=== PATIENT | female | born 1960 | race Caucasian/White ===

== ENCOUNTER 2018-07-02 16:49 | Emergency (ER) | payer OTHER ==
--- OUTSIDE RECORDS SUMMARY | 2018-07-02 16:51 | XMS REPORT ---
:1960 [facility] Address [address] [place] [address] [address] Care Team Providers Name Role Phone DR DEANNA CARLSON Unavailable Unavailable Problems This patient has no known problems. Allergies, Adverse Reactions, Alerts This patient has no known allergies or adverse reactions. Medications This patient has no known medications. Encounters Start End Encounter Admission Attending Care Care Encounter Date/Time Date/Time Type Type Clinicians Facility Department ID 2017-09-20 [id number] 16:15:00
[2018-07-02 17:58] LABS: Urine Blood NEGATIVE (NEG); Urine Glucose NEGATIVE (NEG); Urine Protein NEGATIVE (NEG); Urine Specific Gravity 1.025 (1.005-1.030)
[2018-07-02 18:18] LABS: Absolute Lymphocytes (CBC) 2.2 K/uL (0.7-4.9); Absolute Monocytes 0.9 K/uL (0.1-1.3); Absolute Neutrophil 4.2 K/uL (1.8-8.0); Basophils % 1.4 % (0-1.3); Hematocrit 40.9 % (36.0-45.0); Lymphocytes % 27.9 % (15.3-44.8); MPV 8.8 fL (7.6-11.3); Monocytes % 10.9 % (3.3-12.3); RBC Red Blood Cell Count 4.78 M/uL (3.86-4.86)
[2018-07-02 18:31] LABS: Urine Bacteria <20 /HPF (<20); Urine Culture Reflex Order NOT NEEDED; Urine RBC NONE SEEN /HPF (NONE SEEN)
[2018-07-02 18:36] LABS: Protime INR 0.97
[2018-07-02 18:43] LABS: ALT/SGPT 25 U/L (12-78); AST/SGOT 17 U/L (15-37); Albumin 3.4 g/dL (3.4-5.0); Alkaline Phosphatase 120 U/L (45-117); BUN Blood Urea Nitrogen 22 mg/dL (7-18); Bicarbonate 32 mmol/L (21-32); Bilirubin Direct 0.1 mg/dL (0-0.2); Bilirubin Total 0.4 mg/dL (0.2-1.0); Glucose Level 102 mg/dL (74-106); Potassium 4.2 mmol/L (3.5-5.1); Protein, Total 7.3 g/dL (6.4-8.2); Sodium Level 142 mmol/L (136-145); Troponin (Emerg Dept Use Only) < 0.02 ng/mL (0.0-0.045)
--- NOTE | 2018-07-02 19:05 | RAD REPORT ---
EXAM DESCRIPTION: RAD - Chest Pa And Lat (2 Views) - 07/02/2018 6:14 pm CLINICAL HISTORY: Shortness of breath, hypertension, diaphoresis COMPARISON: None. TECHNIQUE: PA and lateral views of the chest were obtained. FINDINGS: The lungs are clear. No mediastinal or hilar mass or lymphadenopathy suspected. Heart siz e is normal and central vasculature is within normal limits. No pleural effusion or pneumothorax see n. No acute bony finding noted. No aortic abnormality. IMPRESSION: No acute cardiopulmonary process.
[2018-07-02] MEDS ORDERED: NA CHLORIDE 0.9% 1,000 ML ONE (19:37)
--- NOTE | 2018-07-02 19:54 | RAD REPORT ---
EXAM DESCRIPTION: CT - Chest For Pe Angio - 07/02/2018 7:36 pm CLINICAL HISTORY: Tachycardia, decreased O2 saturation COMPARISON: Chest films same date TECHNIQUE: Dynamically enhanced 3 mm thick images of the chest were obtained during administration o f approximately 150mL Isovue 370 IV contrast. Coronal and oblique MIP reconstruction images were gene rated and reviewed. Exam utilizes a protocol to evaluate the pulmonary arterial tree. All CT scans are performed using dose optimization technique as appropriate and may include automated exposure control or mA/KV adjustment according to patient size. FINDINGS: No pulmonary emboli are identified. The aorta as imaged shows no acute or suspicious finding. No pericardial thickening or effusion. No infiltrate or mass in the lung parenchyma. No pleural effusion or pleural thickening. No mediastinal or hilar suspicious masses. No chest wall masses or abnormal axillary lymphadenopathy. IMPRESSION: No pulmonary emboli identified. No other significant or suspicious findings.
--- NOTE | 2018-07-02 20:26 | EDPHYS ---
Physician Documentation [facility] Name: Maria Fernanda Riggins Age: 57 yrs Sex: Female : 1960 Arrival Date: 07/02/2018 Time: 16:50 Bed 18 Private MD: ED Physician Balwinder Valdes HPI: 07/02 19:05 This 57 yrs old Female presents to ER via Ambulatory with complaints of High wa Blood Pressure, Elevated Heart Rate. 19:05 The patient has elevated blood pressure and discovered this at a physician's office, ri and sent to the emergency department for evaluation. Onset: The symptoms/episode began/occurred chronic. states has h/o HTN. has been controlled on a medication that recently got discontinued. was switched a week ago by her doctor and BP has been erratic since. admits to intermittent HAs x same duration of time. Denies CP or SOB. PMD sent here for eval as noted with increased HR 135 and sweating at her doc's office. Denies MARTINEZ now. Modifying factors: The symptoms are aggravated by discontinuation of meds, The symptoms are alleviated by none. Associated signs and symptoms: Pertinent positives: headache, increased HR and profuse sweating, Pertinent negatives: chest pain, dizziness, dyspnea, vomiting. Severity of symptoms: At its worst the blood pressure was 177 mm Hg, in the emergency department the blood pressure is improved, moderately. The patient has experienced similar episodes in the past. The patient has been recently seen by a physician: the patient's primary care provider. Historical: - Allergies: 16:58 No Known Allergies; sv - PMHx: 16:58 Hypertension; neck problem; sv - PSHx: 16:58 Neck jez; Knee surgery; Achilles sx; foot; sv - Immunization history:: Adult Immunizations up to date. - Social history:: Smoking status: Patient/guardian denies using tobacco, never smoked, Patient/guardian denies using alcohol, street drugs. - Family history:: Mother has/had heart disease. - Hospitalizations: : No recent hospitalization is reported. ROS: 19:14 Constitutional: Negative for fever, chills, and weight loss, Eyes: Negative for injury, wa pain, redness, and discharge, ENT: Negative for injury, pain, and discharge, Neck: Negative for injury, pain, and swelling, Abdomen/GI: Negative for abdominal pain, nausea, vomiting, diarrhea, and constipation, Back: Negative for injury and pain, : Negative for injury, bleeding, discharge, and swelling, MS/Extremity: Negative for injury and deformity, Skin: Negative for injury, rash, and discoloration, Neuro: Negative for headache, weakness, numbness, tingling, and seizure, Psych: Negative for depression, anxiety, suicide ideation, homicidal ideation, and hallucinations. 19:14 Cardiovascular: Positive for transient increased HR, Negative for chest pain, edema, orthopnea, palpitations, paroxysmal nocturnal dyspnea. 19:14 Respiratory: Negative for cough, dyspnea on exertion, shortness of breath, sputum production. Exam: 19:15 Constitutional: This is a well developed, well nourished patient who is awake, alert, wa and in no acute distress. Head/Face: Normocephalic, atraumatic. Eyes: Pupils equal round and reactive to light, extra-ocular motions intact. Lids and lashes normal. Conjunctiva and sclera are non-icteric and not injected. Cornea within normal limits. Periorbital areas with no swelling, redness, or edema. ENT: Nares patent. No nasal discharge, no septal abnormalities noted. Tympanic membranes are normal and external auditory canals are clear. Oropharynx with no redness, swelling, or masses, exudates, or evidence of obstruction, uvula midline. Mucous membranes moist. Neck: Trachea midline, no thyromegaly or masses palpated, and no cervical lymphadenopathy. Supple, full range of motion without nuchal rigidity, or vertebral point tenderness. No Meningismus. Chest/axilla: Normal chest wall appearance and motion. Nontender with no deformity. No lesions are appreciated. Cardiovascular: Regular rate and rhythm with a normal S1 and S2. No gallops, murmurs, or rubs. Normal PMI, no JVD. No pulse deficits. Respiratory: Lungs have equal breath sounds bilaterally, clear to auscultation and percussion. No rales, rhonchi or wheezes noted. No increased work of breathing, no retractions or nasal flaring. Abdomen/GI: Soft, non-tender, with normal bowel sounds. No distension or tympany. No guarding or rebound. No evidence of tenderness throughout. Back: No spinal tenderness. No costovertebral tenderness. Full range of motion. Skin: Warm, dry with normal turgor. Normal color with no rashes, no lesions, and no evidence of cellulitis. MS/ Extremity: Pulses equal, no cyanosis. Neurovascular intact. Full, normal range of motion. Neuro: Awake and alert, GCS 15, oriented to person, place, time, and situation. Cranial nerves II-XII grossly intact. Motor strength 5/5 in all extremities. Sensory grossly intact. Cerebellar exam normal. Normal gait. Psych: Awake, alert, with orientation to person, place and time. Behavior, mood, and affect are within normal limits. Vital Signs: 16:58 BP 145 / 85; Pulse 94; Resp 18; Temp 98; Pulse Ox 98% ; Weight 104.33 kg; Height 5 ft. sv 9 in. (175.26 cm); Pain 0/10; 18:22 BP 154 / 85; Pulse 85; Resp 23; Pulse Ox 98% ; bp 19:45 BP 184 / 96; Pulse 82; Resp 14; Pulse Ox 99% on R/A; Pain 0/10; ed1 20:48 BP 152 / 86; Pulse 88; Resp 19; Pulse Ox 100% on R/A; Pain 0/10; ed1 16:58 Body Mass Index 33.97 (104.33 kg, 175.26 cm) sv MDM: 17:08 Patient medically screened. ri 19:15 Differential diagnosis: nml exam in ED. tachycardia? recent diaphoresis? low 2 at 93? wa will reassess. 20:12 Data reviewed: vital signs, nurses notes. Test interpretation: by ED physician or ri midlevel provider: EKG: interp by ak: HR 81. nml axis. sinus. low voltage. no acute ischemia. 20:13 Test interpretation: by ED physician or midlevel provider: labs noted for decreased GFR wa of 58. otherwise nml TSH. other labs noted wnl. CT chest negative for PE. . ED course: will d/c with cardiology f/u due to pt's family h/o heart disease. needs renal f/u as well due to decreased GFR. NS bolus give for IVP dye use for CT PE protocol. will have her PMD adjust her meds. . 20:20 Special discussion: pt used to take Tenex. Now takes losartan 50 mg. has not take it wa tonseymour. will have take when she gets home. will give a dose of metoprolol for elevated BP and HR. Cardiology and Renal f/u advised. 20:23 Response to treatment: the patient's symptoms have markedly improved after treatment. 07/02 17:26 Order name: BMP; Complete Time: 19:00 07/02 17:26 Order name: CBC with Diff; Complete Time: 19:17 07/02 17:26 Order name: D-Dimer; Complete Time: 19:17 07/02 17:26 Order name: Hepatic Function; Complete Time: 19:00 07/02 17:26 Order name: PT-INR; Complete Time: 19:17 07/02 17:26 Order name: Troponin (emerg Dept Use Only); Complete Time: 19:00 07/02 17:26 Order name: XRAY Chest Pa And Lat (2 Views); Complete Time: 19:17 07/02 17:26 Order name: EKG; Complete Time: 17:52 ri 07/02 17:26 Order name: Urine Microscopic Only; Complete Time: 19:00 07/02 17:31 Order name: TSH; Complete Time: 19:00 ri 07/02 17:52 Order name: Urine Dipstick--Ancillary (enter results); Complete Time: 19:00 07/02 19:18 Order name: CT Chest For PE Angio; Complete Time: 20:12 ri 07/02 17:26 Order name: Cardiac monitoring; Complete Time: 17:54 ri 07/02 17:26 Order name: EKG - Nurse/Tech; Complete Time: 17:44 07/02 17:26 Order name: IV Saline Lock; Complete Time: 18:02 07/02 17:26 Order name: Labs collected and sent; Complete Time: 18:02 07/02 17:26 Order name: O2 Sat Monitoring; Complete Time: 17:54 07/02 17:26 Order name: Urine Dipstick-Ancillary (obtain specimen); Complete Time: 17:56 ri Administered Medications: 19:47 Drug: NS 0.9% 1000 ml Route: IV; Rate: 1 bolus; Site: right antecubital; ed1 20:46 Follow up: IV Status: Completed infusion; IV Intake: 1000ml ed1 20:45 Drug: Metoprolol 25 mg Route: PO; ed1 20:50 Follow up: Response: Medication administered at discharge. ed1 Disposition: 07/02/18 20:25 Discharged to Home. Impression: Uncontrolled Hypertension. - Condition is Stable. - Discharge Instructions: Hypertension, [id number]. - Medication Reconciliation Form, Thank You Letter, Antibiotic Education, Prescription Opioid Use form. - Follow up: Private Physician; When: 1 - 2 days; Reason: Recheck today's complaints. Follow up: Eric Russell MD; When: 2 - 3 days; Reason: to check and follow your kidney function. Follow up: Antonio Garcia MD; Reason: for heart stress test and echo. - Problem is new. - Symptoms have improved. - Notes: continue to take your losartan. check your blood pressure while on the medication and advise your doctor of the results. see hte kidney doctor to follow your kidney function and and give recommendations as your kidney function is abnormal. also see the heart doctor for check up. he may do a stress test and echocardiogram due to your family history of heart disease a Signatures: Dispatcher [employer] [facility] Nuzhat Burger RN RN Cherise Goldman RN RN ed1 Balwinder Valdes MD MD wa Corrections: (The following items were deleted from the chart) 20:49 20:25 07/02/2018 20:25 Discharged to Home. Impression: Uncontrolled Hypertension. ed1 Condition is Stable. Forms are Medication Reconciliation Form, Thank You Letter, Antibiotic Education, Prescription Opioid Use. Follow up: Private Physician; When: 1 - 2 days; Reason: Recheck today's complaints. Follow up: Eric Russell; When: 2 - 3 days; Reason: to check and follow your kidney function. Follow up: Antonio Garcia; Reason: for heart stress test and echo. Problem is new. Symptoms have improved. wa
--- NOTE | 2018-07-02 20:26 | ER ---
Nurse's Notes [facility] Name: Maria Fernanda Riggins Age: 57 yrs Sex: Female : 1960 Arrival Date: 07/02/2018 Time: 16:50 Bed 18 Private MD: Diagnosis: Uncontrolled Hypertension Presentation: 07/02 16:55 Presenting complaint: Patient states: sent by Dr Loza for HTN and diaphoresis, sv HR-130s BP 170/91. Denies CP. Reports her BP med was switched about a week ago. Transition of care: patient was not received from another setting of care. Onset of symptoms was July 02, 2018. Care prior to arrival: None. 16:55 Method Of Arrival: Ambulatory sv 16:55 Acuity: ROSALIND 3 sv Triage Assessment: 16:59 General: Appears in no apparent distress. comfortable, well developed, Behavior is sv calm, cooperative, appropriate for age. Pain: Denies pain. Neuro: Level of Consciousness is awake, alert, obeys commands, Oriented to person, place, time, situation, Gait is steady. Cardiovascular: Denies chest pain. Respiratory: Respiratory effort is even, unlabored, Respiratory pattern is regular, symmetrical. Historical: - Allergies: 16:58 No Known Allergies; sv - PMHx: 16:58 Hypertension; neck problem; sv - PSHx: 16:58 Neck jez; Knee surgery; Achilles sx; foot; sv - Immunization history:: Adult Immunizations up to date. - Social history:: Smoking status: Patient/guardian denies using tobacco, never smoked, Patient/guardian denies using alcohol, street drugs. - Family history:: Mother has/had heart disease. - Hospitalizations: : No recent hospitalization is reported. Screenin:05 Abuse screen: Denies threats or abuse. Denies injuries from another. Nutritional bp screening: No deficits noted. Tuberculosis screening: No symptoms or risk factors identified. Fall Risk None identified. Assessment: 17:05 General: SEE TRIAGE NOTE. bp 18:14 Reassessment: PT TO RADIOLOGY. ALL CURRENT ORDERS IN PROCESS. bp 19:45 Reassessment: Patient appears in no apparent distress at this time. Patient and/or ed1 family updated on plan of care and expected duration. Pain level reassessed. Patient is alert, oriented x 3, equal unlabored respirations, skin warm/dry/pink. Patient denies pain at this time. Neuro: Level of Consciousness is awake, alert, obeys commands, Oriented to person, place, time, situation. Cardiovascular: Denies chest pain, Heart tones S1 S2 present. Respiratory: Airway is patent Respiratory effort is even, unlabored, Respiratory pattern is regular, symmetrical, Breath sounds are clear bilaterally. Derm: Skin is intact, is healthy with good turgor, Skin is dry, Skin is normal, Skin temperature is warm. Musculoskeletal: Circulation, motion, and sensation intact. Range of motion: intact in all extremities. 20:48 Reassessment: Patient appears in no apparent distress at this time. Patient and/or ed1 family updated on plan of care and expected duration. Pain level reassessed. Patient is alert, oriented x 3, equal unlabored respirations, skin warm/dry/pink. Patient denies pain at this time. Vital Signs: 16:58 BP 145 / 85; Pulse 94; Resp 18; Temp 98; Pulse Ox 98% ; Weight 104.33 kg; Height 5 ft. sv 9 in. (175.26 cm); Pain 0/10; 18:22 BP 154 / 85; Pulse 85; Resp 23; Pulse Ox 98% ; bp 19:45 BP 184 / 96; Pulse 82; Resp 14; Pulse Ox 99% on R/A; Pain 0/10; ed1 20:48 BP 152 / 86; Pulse 88; Resp 19; Pulse Ox 100% on R/A; Pain 0/10; ed1 16:58 Body Mass Index 33.97 (104.33 kg, 175.26 cm) sv ED Course: 16:50 Patient arrived in ED. as 16:57 Triage completed. sv 16:58 Arm band placed on. sv 17:04 Jigar Moe, RN is Primary Nurse. bp 17:05 Patient has correct armband on for positive identification. Bed in low position. Call bp light in reach. Side rails up X2. 17:08 Balwinder Valdes MD is Attending Physician. wa 17:46 EKG done, by endoscopy technican. reviewed by Balwinder Valdes MD. 3 18:10 Initial lab(s) drawn, by in, sent to lab. Urine collected: clean catch specimen, clear. 5 Inserted saline lock: 22 gauge in right antecubital area, using aseptic technique. Blood collected. 18:11 TSH Sent. [facility] 18:11 Urine Microscopic Only Sent. mh5 18:11 BMP Sent. mh5 18:11 CBC with Diff Sent. 5 18:11 D-Dimer Sent. 5 18:11 Hepatic Function Sent. 5 18:11 PT-INR Sent. 5 18:11 Troponin (emerg Dept Use Only) Sent. mh5 18:15 XRAY Chest Pa And Lat (2 Views) In Process Unspecified. EDMS 19:04 Notified ED physician of a critical lab result(s). D-Dimer 685. ed1 19:[address] vm2 19:36 CT Chest For PE Angio In Process Unspecified. EDMS 19:48 Primary Nurse role handed off by Jigar Moe RN ed1 19:48 Cherise Goldman, IGNACIO is Primary Nurse. ed1 20:24 Eric Russell MD is Referral Physician. in 20:24 Antonio Garcia MD is Referral Physician. in 20:48 No provider procedures requiring assistance completed. IV discontinued, intact, ed1 bleeding controlled, No redness/swelling at site. Pressure dressing applied. Administered Medications: 19:47 Drug: NS 0.9% 1000 ml Route: IV; Rate: 1 bolus; Site: right antecubital; ed1 20:46 Follow up: IV Status: Completed infusion; IV Intake: 1000ml ed1 20:45 Drug: Metoprolol 25 mg Route: PO; ed1 20:50 Follow up: Response: Medication administered at discharge. ed1 Intake: 20:46 IV: 1000ml; Total: 1000ml. ed1 Outcome: 20:25 Discharge ordered by . in 20:48 Discharged to home ambulatory. ed1 20:48 Condition: good 20:48 Discharge instructions given to patient, Instructed on discharge instructions, follow up and referral plans. Demonstrated understanding of instructions, follow-up care. 20:49 Patient left the ED. ed1 Signatures: Dispatcher [employer] Nuzhat Carrasco RN RN sv Martinez, Amelia as Riggs, Erika, RN RN ed1 Leyda Collins Candace Flannery [facility] Balwinder Valdes MD MD in Jigar Moe, Niyah Crowley RN 3 Corrections: (The following items were deleted from the chart) 16:59 16:55 Presenting complaint: Patient states: sent by Dr Loza for HTN and sv diaphoresis, HR-130s BP 170/91. Denies CP. sv 16:59 16:58 Pulse 94bpm; Resp 18bpm; Pulse Ox 98%; Temp 98F; 104.33 kg; Height 5 ft. 9 in.; sv BMI: 33.9; Pain 0/10; sv 18:22 18:02 Pulse 85bpm; Resp 23bpm; Pulse Ox 98%; bp bp
[2018-07-02] MEDS ORDERED: METOPROLOL TAR 25 MG TAB ONE (20:52)
--- NOTE | 2018-07-03 07:59 | EKG ---
Test Date: 2018-07-02 Test Time: 17:31:05 [employer]: [employer] MEASUREMENT RESULTS: Intervals: Rate: 81 DC: 126 QRSD: 72 QT: 380 QTc: 441 [place]: P: 41 DC: 126 QRS: 71 T: 26 INTERPRETIVE STATEMENTS: Normal sinus rhythm Low voltage QRS Abnormal ECG Compared to ECG 05/13/2014 17:01:46 Low QRS voltage now present Electronically Signed On 07-03-18 07:59:13 CDT by Antonio Garcia
== END 2018-07-02 20:49 | disposition home or self-care (01) ==
LOC: ER 16:49
DX: I10 Essential (primary) hypertension (principal)
CPT/HCPCS: 36415; 71046; 71275; 80048; 80076; 81003; 81015; 84443; 84484; 85025; 85379; 85610; 93005; 96360; 99284; J7030; Q9967

== ENCOUNTER 2022-01-13 07:35 | Day surgery (SDC) | payer BC, OTHER ==
--- NOTE | 2022-01-12 14:18 | EKG ---
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
[2022-01-13] MEDS ORDERED: Ringers Lactate 1,000 ML IV ONE (07:55)
[2022-01-13] MEDS ORDERED: propofoL 200 MG/20 ML VIAL IV ONE ×2 (09:08→09:09)
[2022-01-13] MEDS ORDERED: LIDOCAINE 1% MPF 10 ML AMPULE ONE (09:08)
[2022-01-13 10:39] VITALS: BP 129/84; TEMP 98.6; O2SAT 97
== END 2022-01-13 10:23 | disposition home or self-care (01) ==
LOC: OR 07:35
PROVIDERS: ATTEND Surgery
PROC: 0DJD8ZZ Inspection of Lower Intestinal Tract, Via Natural or Artificial Opening Endoscopic (ICD-10-PCS; principal; 2022-01-13 09:15)
DX: Z12.11 Encounter for screening for malignant neoplasm of colon (principal); K64.4 Residual hemorrhoidal skin tags; K64.8 Other hemorrhoids; K57.90 Diverticulosis of intestine, part unspecified, without perforation or abscess without bleeding; I10 Essential (primary) hypertension; E78.00 Pure hypercholesterolemia, unspecified; F32.A Depression, unspecified
CPT/HCPCS: 93005; 80048; 36415; 45378; J2704 ×2; J7120